=== PATIENT | female | born 1955 | race Caucasian/White ===

== ENCOUNTER → 2017-01-02 | Outpatient (CLI) | payer BC ==
--- NOTE | 2017-01-02 12:33 | RAD ---
HISTORY: Sternal pain Study: Sternum two-view Comparison: None Findings: The patient is status post median sternotomy. 6 sets of suture wires are present. Lowermost due to w ires are discontinuous. There is no definite evidence for fracture, lytic, or blastic lesion. Howeve r, if the patient continues to be symptomatic. Evaluation with CT would be of further diagnostic pallavi ue. IMPRESSION: Status post median sternotomy No definite abnormality identified, however, see recommendation as above Reported By:
== END ==
LOC: RAD 11:45
PROVIDERS: ATTEND Nurse Practitioner Family
DX: Z48.812 Encounter for surgical aftercare following surgery on the circulatory system (principal); R07.2 Precordial pain; I25.10 Atherosclerotic heart disease of native coronary artery without angina pectoris
CPT/HCPCS: 71120

== ENCOUNTER → 2017-01-14 | Outpatient (CLI) | payer BC ==
[~2017-01-14] MED LIST: NS 100 ML IV 100 ML IV ONE
[2017-01-14 08:54] LABS: CREATININE 1.07 mg/dL (0.55-1.02)
--- NOTE | 2017-01-14 10:15 | CT ---
HISTORY: Precordial pain Study: CT chest with contrast Comparison: Sternal radiograph 01/02/2017 Technique: Multiple axial images of the chest were obtained from the thoracic inlet to the upper abd omen after the administration of IV contrast. Dose reduction techniques including Automated Exposur e Control (AEC) and adjustment of mA and kV were utilized. Findings: Chronic sternotomy changes are noted. There is mild sternal dehiscence up to 8 mm that may be chroni c in nature with several of the lower sternal wires appearing fracture. No evidence of acute bony fr acture. There is moderate atherosclerotic disease of the thoracic aorta without dissection or aneury sm. 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 No pericardial effusion. Normal-sized heart. The pul monary arteries are normal in size. The lungs are clear without effusion, consolidation, or pneumoth orax. Airways are patent. There is a 6 mm intrapulmonary lymph nodes seen in the right middle lobe t hat requires no further followup. The remaining soft tissues and osseous structures are unremarkable. The visualized portions of the u pper abdomen are grossly unremarkable. IMPRESSION: 1. Chronic sternotomy changes with multiple of the lower sternotomy wires appearing fractured. This is a finding of indeterminate age, possibly chronic. Correlation with any old chest radiographs woul d be beneficial if available. There is minimal sternal dehiscence up to 8 mm. There is no fluid frankie ection or evidence of acute fracture. 2. Atherosclerotic disease of the thoracic aorta. Reported By:
== END ==
LOC: RAD 08:23
PROVIDERS: ATTEND Nurse Practitioner Family
DX: R07.2 Precordial pain (principal); I70.0 Atherosclerosis of aorta
CPT/HCPCS: 36415; 71260; 82565; 84520; A4222